=== PATIENT | male | born 1980 | race Two or more races ===

== ENCOUNTER 2016-05-27 21:32 | Emergency (ER) | payer SELFPAY ==
[2016-05-28] MEDS ORDERED: ONDANSETRON 4 MG/2ML 2 ML VIAL ONE (00:13)
[2016-05-28] MEDS ORDERED: PANTOPRAZOLE SODIUM 40 MG VIAL IV ONE (00:13)
[2016-05-28] MEDS ORDERED: SODIUM CHLORIDE 0.9% 1,000 ML ONE ×2 (00:13→01:25)
[2016-05-28 00:29] LABS: ABSOLUTE NEUTROPHIL COUNT 10.7 K/mm3 (1.8-7.7); BASO % 0.2 % (0.2-1.0); HEMATOCRIT 46.4 % (32.0-52.0); HEMOGLOBIN 16.4 gm/l (14.0-18.0); IMM NEUT # 0.1 K/mm3 (0-0.2); IMM NEUT% 0.4 % (0-1); LYMPH # 0.7 (1.0-4.8); LYMPH % 5.8 % (15-45); MEAN CELL VOLUME 85.9 fl (80.0-94.0); MEAN CORPUSCULAR HEMOGLOBIN 30.4 pg (27.0-31.0); MEAN CORPUSCULAR HGB CONC 35.3 g/dl (33.0-37.0); MEAN PLATELET VOLUME 12.3 fl (7.4-10.4); MONO # 0.6 (0.0-0.8); MONO % 5.3 % (4-12); NEUT % 88.3 % (43-75); PLATELET COUNT 167 K/mm3 (130-400); RED CELL DISTRIBUTION WIDTH 12.4 % (11.5-14.5)
[2016-05-28 00:51] LABS: ALBUMIN 4.5 gm/dL (3.5-5.7); CALCIUM 9.6 mg/dL (8.6-10.3); MAGNESIUM 1.5 mg/dL (1.9-2.7)
[2016-05-28 01:40] LABS: VENOUS BLOOD GAS BASE EXCESS -1.7 mmol/L (-2.0-2.0); VENOUS BLOOD GAS HCO3 25.2 mmol/L (22.0-27.0)
[2016-05-28 09:40] LABS: A1C-GLYCOHEMOGLOBIN 1.9 g/dl; HEMOGLOBIN-GLYCO 16.3 g/dl
== END 2016-05-28 02:09 | disposition home or self-care (01) ==
LOC: ED 21:32
DX: K29.20 Alcoholic gastritis without bleeding (principal); E87.2 Acidosis; E11.9 Type 2 diabetes mellitus without complications; F10.20 Alcohol dependence, uncomplicated
CPT/HCPCS: 83690; 82803; 85025; 80053; 83036; 83735; 96375; 99283 ×2; 96374; 96361 ×2; C9113; J2405; J7030 ×2